=== PATIENT | female | born 1945 | race Caucasian/White ===

== ENCOUNTER → 2021-01-14 | Outpatient (CLI) | payer MEDICARE ==
[~2021-01-14] VITALS: Ht 165.1 cm; Wt 70.8 kg
== END ==
LOC: OPSV 12:44
DX: M81.0 Age-related osteoporosis without current pathological fracture (principal)
CPT/HCPCS: 96365; J3489

== ENCOUNTER → 2021-08-10 | Outpatient (CLI) | payer MEDICARE | LOC: MAMO 11:30 | DX: Z12.31 Encounter for screening mammogram for malignant neoplasm of breast (principal) | CPT/HCPCS: 77063; 77067 ==